=== PATIENT | female | born 1970 | race Caucasian/White ===

== ENCOUNTER 2025-06-01 09:55 | Day surgery (SDC) | payer BC ==
[~2025-06-01] VITALS: Ht 160 cm; Wt 86.0 kg
[~2025-06-01 09:55] MED LIST: FLUOXETINE HCL20 MG; IBLOOD GLUCOSE TEST STRIP 1 EA TEST VI PRN; LACTATED RINGER'S 1,000 ML IV SCH; LIDOCAINE HCL 1% 5 ML SDV INJ ONE; LISINOPRIL10 MG PO; METOPROLOL SUCC25 MG PO; NAPROXEN500 MG PO
[2025-06-01 10:08] VITALS: BP 143/81
[2025-06-01] MEDS ORDERED: LIDOCAINE HCL 2% 5 ML SDV ONE (11:08)
--- NOTE | 2025-06-01 11:55 | NUR ---
06/01/25 1155 Shweta Díaz 1136-PATIENT ARRIVED TO PACU ON 2L NC RR EVEN. PATIENT REACTIVE TO VERBAL STIMULI ORIENTED TO PACU ENCOURAGED TO PASS GAS. ABDOMEN SOFT. LAYING LEFT LATERAL. 1145-PATIENT AWAKE DENIES PAIN OR NAUSEA. PLACED ON RA RR EVEN. PASSING GAS. 1155-PATIENT AWAKE SITTING UP IN BED DENIES PAIN OR NAUSEA. RA 100% RR EVEN. DRINKING WATER
[2025-06-01 12:18] VITALS: BP 144/77
--- NOTE | 2025-06-02 08:50 | OR ---
[facility] [address] [place], [place] [address] Signed DATE OF OPERATION: 06/01/2025 SURGEON: Yaquelin Guzmán DO PREOPERATIVE DIAGNOSIS: Colon cancer screening. POSTOPERATIVE DIAGNOSIS: Colon cancer screening with broad-based polyp at 25 cm. PROCEDURE PERFORMED: Colonoscopy with the biopsy of polyp at 25 cm. ANESTHESIA: IV sedation. ESTIMATED BLOOD LOSS: Minimal. DRAINS: None. COMPLICATIONS: None. DESCRIPTION OF PROCEDURE: The patient was brought to the GI lab, placed in supine position. After induction of IV sedation, the patient was then placed in the left lateral position, padded to the satisfaction of anesthesia. The Olympus video colonoscope was then introduced into the rectum, and while under direct visualization and insufflation, the scope was advanced through the rectosigmoid, descending colon, transverse colon, ascending colon into the cecum. The colon was insufflated, and inspection of the mucosal surfaces was carried out. The scope was withdrawn. No intrinsic or extrinsic masses were noted in the ascending colon or cecum. No intrinsic or extrinsic masses were noted in the transverse colon. No intrinsic or extrinsic masses were noted in the descending colon, but at 25 cm in the low sigmoid colon, a flat broad-based polyp was identified. Photographs were taken, and multiple biopsies were taken with the cold forceps and passed off the field. Hemostasis was maintained. Otherwise, the sigmoid colon was unremarkable. Rectosigmoid otherwise was unremarkable. The scope was withdrawn. The patient tolerated the procedure well and to recovery room in satisfactory condition. Electronically Signed By: YAQUELIN GUZMÁN DO 06/02/25 0850 PATIENT NAME: JOSEPHINE MAGAÑA OPERATIVE REPORT DATE OF : 72 REPORT #: [id number] PHYSICIAN: YAQUELIN GUZMÁN DO PCP: YAQUELIN ESPINOSA MD REPORT IS CONFIDENTIAL AND NOT TO BE RELEASED WITHOUT AUTHORIZATION [address] [place], [place] [address] Signed Yaquelin Guzmán DO RS/MODL /[id number] Copies: ~ Electronically Signed By: YAQUELIN GUZMÁN DO 06/02/25 0850 PATIENT NAME: JOSEPHINE MAGAÑA OPERATIVE REPORT DATE OF : 72 REPORT #: [id number] PHYSICIAN: YAQUELIN GUZMÁN DO PCP: YAQUELIN ESPINOSA MD REPORT IS CONFIDENTIAL AND NOT TO BE RELEASED WITHOUT AUTHORIZATION
--- NOTE | 2025-06-05 12:15 | PATH ---
[facility] [address] [place], [place] [address] Signed SPECIMEN(S): A COLON POLYP AT 25 CM SPECIMEN SOURCE: A. COLON POLYP AT 25 CM CLINICAL HISTORY: Screening for cancer FINAL PATHOLOGIC DIAGNOSIS: Colon polyp at 25 cm: - Hyperplastic polyp BB MICROSCOPIC EXAMINATION: Histologic sections of all submitted blocks are examined by light microscopy. These findings, together with the gross examination, support the pathologic diagnosis. GROSS DESCRIPTION: The specimen, labeled and designated "Greg, colon polyp at 25 cm," is received in formalin and consists of two mccray soft tissue fragments, ranging from 0.2-0.3 cm. Entirely submitted in (A1). VB (under the direct supervision of a pathologist) The Gross Description was prepared using a voice recognition system. The report was reviewed for accuracy; however, sound-alike word errors, addition and/or deletions may occur. If there is any question about this report, please contact Client Services. ADDITIONAL NOTES: Immunohistochemical and/or in situ hybridization studies if performed in this case included appropriate positive controls that reacted as expected. This test was developed and its performance characteristics determined by [facility]. It has not been cleared or approved by the U.S. Food and Drug Administration. The FDA has determined that such clearance or approval is not necessary. This test is used for clinical purposes. It should not be regarded as investigational or for research. [facility] is certified under the Clinical Laboratory Improvement Amendments of 1988 (CLIA) as qualified to perform high complexity clinical laboratory testing. PATIENT NAME: JOSEPHINE MAGAÑA [facility] DATE OF : 72 REPORT #: [id number] PHYSICIAN: ZA HODGE PCP: YAQUELIN ESPINOSA MD REPORT IS CONFIDENTIAL AND NOT TO BE RELEASED WITHOUT AUTHORIZATION [facility] [address] [place], [place] [address] Signed PERFORMING LABORATORY: Technical component was performed by [facility], [address] [place] [address] (CLIA# [id number]). [facility] [address] (CLIA#: [id number]). Diagnostician: Issac Millard MD Pathologist Electronically Signed 06/05/2025 Copies: ~ PATIENT NAME: JOSEPHINE MAGAÑA PATHOLOGY DATE OF : 72 REPORT #: [id number] PHYSICIAN: ZA HODGE PCP: YAQUELIN ESPINOSA MD REPORT IS CONFIDENTIAL AND NOT TO BE RELEASED WITHOUT AUTHORIZATION
== END 2025-06-01 12:20 | disposition home or self-care (01) ==
LOC: DS 09:55 → OPS 09:55 → DS 11:50 → OPS 11:50 → DS 12:50
PROVIDERS: ATTEND Surgery
PROC: 0DBN8ZZ Excision of Sigmoid Colon, Via Natural or Artificial Opening Endoscopic (ICD-10-PCS; principal; 2025-06-01 11:10)
DX: Z12.11 Encounter for screening for malignant neoplasm of colon (principal); K63.5 Polyp of colon; I10 Essential (primary) hypertension; Z79.899 Other long term (current) drug therapy; Z88.0 Allergy status to penicillin; Z91.010 Allergy to peanuts; Z91.018 Allergy to other foods
CPT/HCPCS: 00811; J2003; J2704; J7121